=== PATIENT | male | born 1975 ===

== ENCOUNTER 2018-01-08 03:16 | Emergency (ER) | payer SELFPAY ==
[2018-01-08 04:05] VITALS: RESP 18
--- NOTE | 2018-01-08 05:01 | ED PDOC ---
HPI: Psych/Substance Abuse Time Seen by Provider: 01/08/18 04:16 Chief Complaint (Nursing): Alcohol Ingestion Chief Complaint (Provider): Alcohol Ingestion ED Caveat: Intoxicated History Per: EMS History/Exam Limitations: intoxication Onset/Duration Of Symptoms: Hrs ([employer]) Current Symptoms Are (Timing): Still Present Modifying Factor(s): Alcohol Additional Complaint(s): 42 year old male presents to the ED for public intoxication. He was able to ambulate in with EMS. As per EMS, patient was found lying curbside. Patient admits to drinking alcohol. History is limited due to intoxication. Patient is currently sleeping and smells of alcohol. Past Medical History Reviewed: Historical Data, Nursing Documentation, Vital Signs, Unable To Obtain Vital Signs: Last Vital Signs Temp Pulse 71 01/08/18 04:02 Resp 18 01/08/18 04:02 BP 111/76 01/08/18 04:02 Pulse Ox 98 01/08/18 04:02 - Medical History PMH: No Chronic Diseases - Surgical History Surgical History: No Surg Hx - Family History Family History: States: Unknown Family Hx - Home Medications Home Medications: Ambulatory Orders Medication Instructions Recorded Doxycycline Hyclate 100 mg PO BID #20 cap 11/15/13 - Allergies Allergies/Adverse Reactions: Allergies Allergy/AdvReac Type Severity Reaction Status Date / Time No Known Allergies Allergy Verified 11/15/13 09:10 Review of Systems Review Of Systems: ROS cannot be obtained secondary to pt's inabilty to answer questions. Physical Exam - Reviewed Nursing Documentation Reviewed: Yes Vital Signs Reviewed: Yes - Physical Exam Appears: Positive for: No Acute Distress Head Exam: Positive for: ATRAUMATIC, NORMAL INSPECTION Skin: Positive for: Normal Color Eye Exam: Positive for: Normal appearance, EOMI, PERRL Cardiovascular/Chest: Positive for: Regular Rate, Rhythm Respiratory: Negative for: Respiratory Distress Gastrointestinal/Abdominal: Positive for: Soft Neurologic/Psych: Positive for: Gait (unsteady). Negative for: Alert, Oriented - ECG O2 Sat by Pulse Oximetry: 98 (RA) Pulse Ox Interpretation: Normal - Progress Re-evaluation Time: 07:00 Condition: Re-examined, Improved Medical Decision Making Medical Decision Making: Time: 415 Initial Impression: ETOH ingestion Initial Plan: --Monitor for clinical sobriety - Scribe Attestation: Documented by Angelica Laura, acting as a scribe for Denisha Owens MD Provider Scribe Attestation: All medical record entries made by the Scribe were at my direction and personally dictated by me. I have reviewed the chart and agree that the record accurately reflects my personal performance of the history, physical exam, medical decision making, and the department course for this patient. I have also personally directed, reviewed, and agree with the discharge instructions and disposition. Disposition - Clinical Impression Clinical Impression: Alcohol abuse, Alcohol abuse with intoxication - Patient ED Disposition Is Patient to be Admitted: No Counseled Patient/Family Regarding: Studies Performed, Diagnosis - Disposition Disposition: Routine/Home Disposition Time: 07:00 Condition: IMPROVED Instructions: Alcohol Abuse and Alcoholism (DC)
[2018-01-08 07:38] VITALS: BP 118/66; PULSE 74; TEMP 98.1
[2018-01-10 19:14] VITALS: O2SAT 98
== END 2018-01-08 07:39 | disposition home or self-care (01) ==
LOC: H.ER 03:16
DX: F10.129 Alcohol abuse with intoxication, unspecified (principal)